=== PATIENT | female | born 1965 | race Caucasian/White ===

== ENCOUNTER 2019-01-05 05:41 | Inpatient (IN) | payer BC ==
[2019-01-02 11:13] LABS: ALBUMIN 3.8 g/dL (3.4-5.0); ANION GAP 5 mmol/L (5-15); CALCIUM 8.7 mg/dL (8.5-10.1); CHLORIDE 110 mmol/L (98-107)
[2019-01-02 11:21] LABS: ALANINE AMINOTRANSFERASE 36 U/L (12-78); ALKALINE PHOSPHATASE 80 U/L (45-117); BILIRUBIN,TOTAL 0.6 mg/dL (0.2-1.0)
[2019-01-02 11:24] LABS: BASOPHILS # (AUTO) 0.01 x10^3/uL (0-0.1); BASOPHILS % (AUTO) 0 % (0-1); EOSINOPHILS # (AUTO) 0.05 x10^3/uL (0-0.4); EOSINOPHILS % (AUTO) 1 % (1-7); LYMPHOCYTES # (AUTO) 2.36 x10^3/uL (1-3.4); LYMPHOCYTES % (AUTO) 24 % (22-44); MD NO; MEAN CORPUSCULAR HEMOGLOBIN 31.4 pg (27.0-34.8); MEAN CORPUSCULAR HGB CONC 33.1 g/dL (32.4-35.8); MEAN CORPUSCULAR VOLUME 94.9 fL (80-100); MEAN PLATELET VOLUME 9.7 fL (7.4-10.4); MONOCYTES # (AUTO) 0.52 x10^3/uL (0.2-0.8); MONOCYTES % (AUTO) 5 % (2-9); NEUTROPHILS # (AUTO) 6.82 x10^3/uL (1.8-6.8); NEUTROPHILS % (AUTO) 70 % (42-75); PLATELET COUNT 270 x10^3/uL (130-400); RED BLOOD COUNT 4.52 x10^6/uL (3.82-5.3); RED CELL DISTRIBUTION WIDTH 13.5 % (9.6-15.2)
[2019-01-02 11:30] LABS: INTERNATIONAL NORMALIZED RATIO 0.99 (0.93-1.1); PROTHROMBIN TIME 10.4 Seconds (9.6-11.5)
[~2019-01-05] VITALS: Ht 170.2 cm; Wt 101.8 kg
[2019-01-05] MEDS ORDERED: LACTATED RINGERS 1,000 ML IV SCH (06:11)
[2019-01-05] MEDS ORDERED: BACI1CAP PO (06:26)
[2019-01-05] MEDS ORDERED: VITA1CAP PO (06:26)
[2019-01-05] MEDS ORDERED: LEVO75TA5 PO (06:26)
[2019-01-05] MEDS ORDERED: CHOL10002 PO (06:26)
[2019-01-05 06:27] VITALS: BP 136/81
[2019-01-05] MEDS ORDERED: LIDOCAINE-MPF 1%, 2ML INFIL ONE (06:30)
[2019-01-05 07:03] LABS: HCG UR SG 1.032 (1.003-1.030)
[2019-01-05] MEDS ORDERED: MIDAZOLAM 1 MG/ML, 2ML ONE (07:23)
[2019-01-05] MEDS ORDERED: FENTANYL PF 250 MCG/5ML ONE (07:23)
[2019-01-05] MEDS ORDERED: ACETAMINOPHEN 500 MG TABLET ONE (07:27)
[2019-01-05] MEDS ORDERED: GABAPENTIN 300 MG CAPSULE ONE (07:27)
[2019-01-05] MEDS ORDERED: SCOPOLAMINE PATCH, 1.5MG PATCH.TD72 TD ONE (07:27)
[2019-01-05] MEDS ORDERED: KETOROLAC 30 MG/1 ML ONE (07:47)
[2019-01-05] MEDS ORDERED: HYDROmorphone 2 MG/ML, 1ML IVPush PRN (09:00)
[2019-01-05] MEDS ORDERED: hydrALAzine 20 MG/ML, 1ML IV PRN (09:00)
[2019-01-05] MEDS ORDERED: DIAZEPAM 5 MG/ML, 2ML IVPush PRN (09:00)
[2019-01-05] MEDS ORDERED: PROMETHAZINE 25 MG/ML, 1ML IV PRN (09:00)
[2019-01-05] MEDS ORDERED: LABETALOL 5MG/ML, 20ML IV PRN (09:00)
[2019-01-05] MEDS ORDERED: ALBUTEROL SULFATE 2.5 MG/3 ML NPPB PRN (09:00)
[2019-01-05] MEDS ORDERED: MEPERIDINE/PF 25MG/0.5ML IVPush PRN (09:00)
[2019-01-05] MEDS ORDERED: CEFAZOLIN 1,000 MG ONE (09:35)
[2019-01-05] MEDS ORDERED: SUCCINYLCHOLINE 20 MG/ML, 10ML ONE (09:35)
[2019-01-05] MEDS ORDERED: NEOSTIGMINE 1 MG/ML, 10ML ONE (09:35)
[2019-01-05] MEDS ORDERED: GLYCOPYRROLATE 0.2MG/1ML, 5ML ONE (09:35)
[2019-01-05] MEDS ORDERED: PROPOFOL 10 MG/ML, 20ML ONE (09:35)
[2019-01-05] MEDS ORDERED: ONDANSETRON 2MG/ML, 2ML ONE (09:35)
[2019-01-05] MEDS ORDERED: DEXAMETHASONE 4 MG/ML, 1ML ONE (09:35)
[2019-01-05] MEDS ORDERED: ROCURONIUM 10MG/ML,5ML ONE (09:35)
[2019-01-05] MEDS ORDERED: SUGAMMADEX 200 MG/2 ML IVPush ONE ×2 (09:37→15:41)
[2019-01-05] MEDS ORDERED: FENTANYL PF 100 MCG/2ML ONE ×3 (09:38→11:17)
[2019-01-05] MEDS ORDERED: OXYcodone 5 MG/5 ML ORAL.SOL UDC ONE ×2 (10:23→11:17)
[2019-01-05] MEDS ORDERED: MORPHINE SULFATE 4 MG/ML, 1ML ONE (10:24)
[2019-01-05] MEDS: FENTANYL PF 100 MCG/2ML IV PRN ×4 (10:30→11:30)
[2019-01-05] MEDS: OXYcodone 5 MG/5 ML ORAL.SOL UDC PO PRN ×2 (10:44→11:25)
[2019-01-05] MEDS: LACTATED RINGERS 1,000 ML IV SCH ×2 (12:27→17:43)
[2019-01-05 12:30] VITALS: BP 104/62
[2019-01-05] MEDS: KETOROLAC 30 MG/1 ML IVPush PRN (15:24)
[2019-01-05 19:54] VITALS: BP 115/66
[2019-01-06 01:22] VITALS: BP 118/58
[2019-01-06] MEDS: LACTATED RINGERS 1,000 ML IV SCH ×2 (01:43→09:43)
[2019-01-06 04:35] LABS: BASOPHILS # (AUTO) 0.03 x10^3/uL (0-0.1); BASOPHILS % (AUTO) 0 % (0-1); EOSINOPHILS # (AUTO) 0.01 x10^3/uL (0-0.4); EOSINOPHILS % (AUTO) 0 % (1-7); LYMPHOCYTES # (AUTO) 2.19 x10^3/uL (1-3.4); LYMPHOCYTES % (AUTO) 21 % (22-44); MD NO; MEAN CORPUSCULAR HEMOGLOBIN 31.5 pg (27.0-34.8); MEAN CORPUSCULAR HGB CONC 33.1 g/dL (32.4-35.8); MEAN CORPUSCULAR VOLUME 95.3 fL (80-100); MEAN PLATELET VOLUME 9.6 fL (7.4-10.4); MONOCYTES # (AUTO) 1.04 x10^3/uL (0.2-0.8); MONOCYTES % (AUTO) 10 % (2-9); NEUTROPHILS # (AUTO) 7.11 x10^3/uL (1.8-6.8); NEUTROPHILS % (AUTO) 69 % (42-75); PLATELET COUNT 241 x10^3/uL (130-400); RED BLOOD COUNT 3.54 x10^6/uL (3.82-5.3); RED CELL DISTRIBUTION WIDTH 13.3 % (9.6-15.2)
[2019-01-06 04:42] LABS: ANION GAP 7 mmol/L (5-15); CALCIUM 7.8 mg/dL (8.5-10.1); CHLORIDE 109 mmol/L (98-107); CREATININE 0.65 mg/dL (0.55-1.02)
[2019-01-06 06:43] VITALS: BP 109/60
[2019-01-06] MEDS: ONDANSETRON 2MG/ML, 2ML IVPush PRN (07:36)
[2019-01-06] MEDS: KETOROLAC 30 MG/1 ML IVPush PRN ×3 (07:36→21:17)
[2019-01-06 12:18] VITALS: BP 110/61
[2019-01-06 18:59] VITALS: BP 107/62
[2019-01-07 01:06] VITALS: BP 116/64
[2019-01-07] MEDS: KETOROLAC 30 MG/1 ML IVPush PRN ×2 (02:50→19:33)
[2019-01-07 04:37] LABS: BASOPHILS # (AUTO) 0.04 x10^3/uL (0-0.1); BASOPHILS % (AUTO) 1 % (0-1); EOSINOPHILS # (AUTO) 0.08 x10^3/uL (0-0.4); EOSINOPHILS % (AUTO) 1 % (1-7); LYMPHOCYTES # (AUTO) 2.93 x10^3/uL (1-3.4); LYMPHOCYTES % (AUTO) 33 % (22-44); MD NO; MEAN CORPUSCULAR HEMOGLOBIN 32.4 pg (27.0-34.8); MEAN CORPUSCULAR HGB CONC 33.7 g/dL (32.4-35.8); MEAN CORPUSCULAR VOLUME 96.1 fL (80-100); MEAN PLATELET VOLUME 9.6 fL (7.4-10.4); MONOCYTES # (AUTO) 0.65 x10^3/uL (0.2-0.8); MONOCYTES % (AUTO) 7 % (2-9); NEUTROPHILS # (AUTO) 5.26 x10^3/uL (1.8-6.8); NEUTROPHILS % (AUTO) 59 % (42-75); PLATELET COUNT 203 x10^3/uL (130-400); RED BLOOD COUNT 2.95 x10^6/uL (3.82-5.3); RED CELL DISTRIBUTION WIDTH 13.3 % (9.6-15.2)
[2019-01-07 06:29] VITALS: BP 105/62
[2019-01-07] MEDS ORDERED: morphine SULFATE 10 MG/ML, 1ML IVPush PRN (10:30)
[2019-01-07] MEDS: OXYcodone/APAP 7.5/325MG TABLET PO PRN ×2 (12:12→19:34)
[2019-01-07] MEDS: ONDANSETRON 2MG/ML, 2ML IVPush PRN (12:12)
[2019-01-07 12:15] VITALS: BP 114/67
[2019-01-07 18:43] VITALS: BP 106/68
[2019-01-08 01:19] VITALS: BP 109/63
[2019-01-08] MEDS: KETOROLAC 30 MG/1 ML IVPush PRN (01:23)
[2019-01-08] MEDS: OXYcodone/APAP 7.5/325MG TABLET PO PRN ×2 (01:24→07:33)
[2019-01-08 07:21] VITALS: BP 110/69
[2019-01-08] MEDS ORDERED: OXYcodone/APAP 7.5/325MG PO (09:11)
[2019-01-08] MEDS ORDERED: ONDA4TAB7 PO (09:45)
[2019-01-08] MEDS ORDERED: KETO10TA PO (09:46)
== END 2019-01-08 10:21 | disposition home or self-care (01) | DRG 743 ==
LOC: ORIP 05:41 → 4NW 12:18 → DCLOUNGE 01-08 10:02
PROVIDERS: ADMIT Obstetrics & Gynecology; ATTEND Specialist
PROC: 0UT70ZZ Resection of Bilateral Fallopian Tubes, Open Approach (ICD-10-PCS; 2019-01-05)
PROC: 0UT90ZZ Resection of Uterus, Open Approach (ICD-10-PCS; 2019-01-05)
PROC: 3E0T3BZ Introduction of Anesthetic Agent into Peripheral Nerves and Plexi, Percutaneous Approach (ICD-10-PCS; 2019-01-05)
PROC: 0UT20ZZ Resection of Bilateral Ovaries, Open Approach (ICD-10-PCS; principal; 2019-01-05 07:30)
DX: D25.9 Leiomyoma of uterus, unspecified (principal); D64.9 Anemia, unspecified; D72.829 Elevated white blood cell count, unspecified; K66.0 Peritoneal adhesions (postprocedural) (postinfection); N93.8 Other specified abnormal uterine and vaginal bleeding; G89.18 Other acute postprocedural pain; E66.9 Obesity, unspecified; Z68.35 Body mass index [BMI] 35.0-35.9, adult; E03.9 Hypothyroidism, unspecified
CPT/HCPCS: 36415; 74018; J3490; 71046; 80048; 80053; 81025; 85025; 85610; 85730; 86304; 86850; 86900; 86923; 88305; 88307; 88331; 93005; G0378; J0690; J1100; J1885; J2250; J2270; J2405; J2704; J2710; J3010; C1765; J0330; J7120